=== PATIENT | female | born 1980 | race Caucasian/White ===

== ENCOUNTER 2017-01-11 08:36 | Inpatient (IN) | payer BC, OTHER ==
[2017-01-11 09:10] VITALS: BMI 35.9
[2017-01-11] MEDS ORDERED: Methylergonovine 0.2 MG/ML VIAL IM PRN (13:31)
[2017-01-11] MEDS ORDERED: Ondansetron HCl/PF 4 MG/2 ML Vial IVP PRN (13:31)
[2017-01-11] MEDS ORDERED: HYDROcodone/Acetaminophen 5/325 mg Tablet PO PRN (13:31)
[2017-01-11] MEDS ORDERED: Ibuprofen 800 MG TAB PO PRN (13:31)
[2017-01-11] MEDS ORDERED: Promethazine HCl 25 MG/ML VIAL IM PRN (13:31)
[2017-01-11] MEDS ORDERED: LR / Pitocin 40 units/1000 ml 1,000 ML IV PRN (13:31)
[2017-01-11] MEDS ORDERED: Misoprostol 200 MCG TAB PR PRN (13:31)
[2017-01-11] MEDS ORDERED: Lidocaine 1% (PF) 30 ML VIAL SC PRN (13:31)
[2017-01-11] MEDS ORDERED: Lactated Ringer's 1,000 ML IV SCH (13:45)
[2017-01-11 14:19] LABS: Hematocrit 34.8 % (36.0-47.0); Mean Platelet Volume 8.4 fL (7.4-10.4); Red Blood Cell (RBC) Count 3.89 mill/uL (4.20-5.40)
--- NOTE | 2017-01-11 19:17 | PDOC.EVN ---
Event Note - Event Note Event Note: Patient had decrease in pain and frequency of contractions. FHT showed ctx every 10 minutes, baseline 145 with accels, no decels. 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 still /-2. Vital signs WNL. Patient is resting comfortably in bed. Recommend patient go home because active labor ruled out. Patient is amenable to plan. Discussed about precautions as to when come back. <Juan Carlos Fuller - Last Filed: 01/11/17 19:11> Attending Addendum - Attending Addendum I personally evaluated the patient and discussed the management with Dr. Fuller. I agree with the History, Examination, Assessment and Plan documented above with any addition or exceptions noted below. Discharge home. Return precautions reveiwed. <Sophy Ospina - Last Filed: 01/12/17 12:57>
--- NOTE | 2017-01-11 19:30 | PDOC.LDPN ---
Labor & Delivery Progress Note - Subjective Subjective: comfortable - Objective Vital signs reviewed and normal: yes General: NAD, resting Dilation: 3 Effacement: 50% Station: -3 FHT: category 1 [place] contractions every: 9-10 mins, not regular - Assessment (1) Uterine contractions Code(s): [id number] - Status: Acute -: Pt did not make a change from 1300. Pt is resting in bed. Got one dose of stadol. Pt contractions are not regular. Maybe 9-10 min apart Will recheck pt in 2 hours. If there is no change. Possibly send home as patient is not in active labor
--- NOTE | 2017-01-13 11:51 | DIS-2 ---
DATE OF ADMISSION: 01/11/2017 DATE OF DISCHARGE: 01/11/2017 HISTORY OF PRESENT ILLNESS: This was a G3, P2, who came in at 40 and 3 weeks by dating of last menstrual period in 12-week sonogram and also confirmed by 37 and 1 week, came in to monitor cervical checks. At this time, she was dilated at a 3, effaced at 50%, station was -3, and heart tones category was 1. The patient did not make a change from previous check. This check was done at 4 :00 and she did not make a change from 1:00 which she made minimal change from the morning before. She would then be checked one more time whereas again, she had not made much change, was currently in the latent phase of labor. She was kings only about every 9-10 minutes and they were not regular. At this time, she is not in labor, so we would send her home. As she was in a latent phase of labor, I told her to follow up when contractions become more regular, if she had any loss of fluid, any bleeding, or any other further concerns. DISPOSITION: Stable. DISCHARGE INSTRUCTIONS: 1. Discharge location: Home. 2. Activity: As tolerated. 3. Diet: Regular diet. 4. Followup: We will follow up as needed when contractions become more regular and is in more active phase of labor. NEREYDA
== END 2017-01-11 19:25 | disposition home or self-care (01) | DRG 780 ==
LOC: L&D/OP 08:36 → L&D 13:53
PROVIDERS: ADMIT Family Medicine; ATTEND Family Medicine
DX: O47.1 False labor at or after 37 completed weeks of gestation (principal); Z3A.40 40 weeks gestation of pregnancy
CPT/HCPCS: 36415; 85027; 86780; 87340; J0595